=== PATIENT | male | born 1955 | race African-American/Black ===

== ENCOUNTER 2017-10-11 07:56 | Day surgery (SDC) | payer OTHER ==
[~2017-10-11 07:56] MED LIST: CEFAZOLIN 1 GM INJ; CEFAZOLIN 2 GM/50 ML (PMX) 50 ML IVPB; DEXAMETHASONE 4 MG/ML 1 ML INJ; ONDANSETRON 4 MG INJ; SOD CHLORIDE 0.9% 1,000 ML IV
[2017-10-11] MEDS ORDERED: LIDOCAINE 2% (SDV) 5 ML INJ (09:04)
[2017-10-11] MEDS ORDERED: PROPOFOL 20 ML (09:04)
[2017-10-11] MEDS ORDERED: MIDAZOLAM 1 MG/ML 2 ML INJ (09:04)
[2017-10-11] MEDS ORDERED: FENTAnyl 50 MCG/ML VIAL (09:05)
[2017-10-11] MEDS ORDERED: METOCLOPRAMIDE 10 MG INJ (09:07)
[2017-10-11] MEDS: BUPIVACAINE 0.5%/EPI (SDV) 30 ML INJ INJ (10:50)
[2017-10-11] MEDS ORDERED: BUPIVACAINE 0.5%/EPI (SDV) 30 ML INJ INJ (10:50)
[2017-10-11] MEDS ORDERED: hydrALAzine 20 MG INJ (11:15)
[2017-10-11] MEDS: hydrALAzine 20 MG INJ IV (11:22)
[2017-10-11] MEDS ORDERED: IPRATROPIUM (NEB) 0.5 MG/2.5 ML AMP HHN (11:30)
[2017-10-11] MEDS ORDERED: HYDROmorphONE (0.2 MG/ML) 10ML SYG IV ×2 (11:30)
[2017-10-11] MEDS ORDERED: ONDANSETRON 4 MG INJ IV (11:30)
[2017-10-11] MEDS ORDERED: FENTAnyl 50 MCG/ML VIAL IV ×2 (11:30)
[2017-10-11] MEDS ORDERED: LABETALOL HCL 20MG INJ IV (11:30)
[2017-10-11] MEDS ORDERED: DIPHENHYDRAMINE 50 MG INJ IV (11:30)
[2017-10-11] MEDS ORDERED: KETOROLAC 30 MG INJ IV (11:30)
[2017-10-11] MEDS ORDERED: MEPERIDINE 25 MG INJ IV (11:30)
== END 2017-10-11 13:20 | disposition home or self-care (01) ==
LOC: SDS 07:56
DX: D17.1 Benign lipomatous neoplasm of skin and subcutaneous tissue of trunk (principal); I10 Essential (primary) hypertension; I69.320 Aphasia following cerebral infarction; E11.9 Type 2 diabetes mellitus without complications
CPT/HCPCS: 11406; 82962; 88307